=== PATIENT | male | born 1960 | race Caucasian/White ===

== ENCOUNTER 2017-07-12 05:30 | Day surgery (SDC) | payer OTHER ==
[~2017-07-12] VITALS: Ht 165.1 cm; Wt 68.0 kg
[~2017-07-12 05:30] MED LIST: AMLO5TAB92 PO; AMOX500C2 PO; ASPI81TA2 PO; LORA10TA68 PO; LOSA100T11 PO; OMEP20CA10 PO; PROSTATE MED PO; TERA2CAP18 PO
[2017-07-12] MEDS ORDERED: fentaNYL CITRATE 250 MCG/5 ML AMP IV ONE (07:10)
[2017-07-12] MEDS ORDERED: DEXAMETHASONE SOD PHOSPHATE 4 MG/ML VIAL IVP ONE (07:10)
[2017-07-12] MEDS ORDERED: ONDANSETRON HCL 4 MG/2 ML VIAL IVP ONE (07:10)
[2017-07-12] MEDS ORDERED: PROPOFOL 200MG/ 20ML VIAL (DIPRIVAN) IV ONE (07:10)
[2017-07-12] MEDS ORDERED: CEFAZOLIN 1 GM IVPB PREMIX 50 ML IV ONE (07:10)
[2017-07-12] MEDS ORDERED: SEVOFLURANE 15 MIN GAS INH ONE (07:10)
[2017-07-12] MEDS ORDERED: NS IRRIG SOLN 1000 ML IR ONE (07:10)
[2017-07-12] MEDS ORDERED: NS 1000 ML BAG IV ONE (07:10)
[2017-07-12] MEDS ORDERED: LIDOCAINE/EPI 1% 1:100000 20 ML VIAL INJ ONE (07:10)
[2017-07-12] MEDS ORDERED: SUCCINYLCHOLINE CHLORIDE 20 MG/ML(QUELICIN) IVP ONE (07:10)
[2017-07-12] MEDS ORDERED: MIDAZOLAM HCL 5 MG/5 ML VIAL IVP ONE (07:10)
[2017-07-12] MEDS ORDERED: LR 1,000 ML IV SCH (07:48)
[2017-07-12] MEDS ORDERED: MORPHINE 4 MG/ML INJ. SYRINGE IVP PRN ×3 (08:00)
[2017-07-12] MEDS ORDERED: METOCLOPRAMIDE HCL 10 MG/2 ML VIAL IVP PRN (08:00)
[2017-07-12] MEDS ORDERED: HYDROcodone/ACETAMIN 5-325 MG TAB (NORCO/ VICODIN) PO PRN (08:45)
[2017-07-12] MEDS ORDERED: HYDROcodone/ACETAMIN 5-325 MG TAB (NORCO/ VICODIN) ONE (10:04)
[2017-07-12 10:10] VITALS: BP_SYST 143
== END 2017-07-12 13:00 | disposition home or self-care (01) ==
LOC: SMU 05:30 → SDS 05:30
PROVIDERS: ATTEND Otolaryngology Plastic Surgery within the Head & Neck
DX: J34.2 Deviated nasal septum (principal); J32.0 Chronic maxillary sinusitis; R23.8 Other skin changes; J34.3 Hypertrophy of nasal turbinates; J34.89 Other specified disorders of nose and nasal sinuses; E11.9 Type 2 diabetes mellitus without complications; I10 Essential (primary) hypertension; K21.9 Gastro-esophageal reflux disease without esophagitis; Z85.46 Personal history of malignant neoplasm of prostate; G47.33 Obstructive sleep apnea (adult) (pediatric)
CPT/HCPCS: 30140; 30520; 31240; 31267; 82962; 88305; 88311; A4649; J7120; J0330; J0690; J1100; J2250; J2405; J2704; J3010; J7030